=== PATIENT | female | born 1960 | race Caucasian/White ===

== ENCOUNTER → 2019-11-21 | Outpatient (CLI) | payer BC ==
[~2019-11-21] MED LIST: TRAM50TA2 PO; XARE10TA PO
[2019-11-21 16:58] LABS: RHEUMATOID FACTOR QUANT < 10.0 IU/ML (<15.0); URIC ACID 3.3 MG/DL (2.6-6.0)
[2019-11-26 18:11] LABS: ANTINUCLEAR ANTIBODIES DIRECT Negative (Negative); HLA-B27 Negative (.); Lyme Disease IgG/IgM Antibodie <0.91 ISR (0.00-0.90); Lyme Disease IgM Ab Quantitati <0.80 index (0.00-0.79)
== END ==
LOC: M LAB 15:01
PROVIDERS: ATTEND Physician Assistant
DX: M16.0 Bilateral primary osteoarthritis of hip (principal)

== ENCOUNTER → 2019-12-27 | Outpatient (REF) | payer BC ==
[2019-12-27 18:05] LABS: PERCENT SATURATION 14.8 % (13.2-45.0)
== END ==
LOC: M LAB REF 17:20
PROVIDERS: ATTEND Internal Medicine
DX: D64.9 Anemia, unspecified (principal)

== ENCOUNTER 2020-01-23 11:00 | Outpatient (RCR) | payer BC | END 2020-02-01 | LOC: M PT 11:00 | PROVIDERS: ATTEND Physician Assistant Surgical | DX: M16.11 Unilateral primary osteoarthritis, right hip (principal) ==

== ENCOUNTER → 2020-01-23 | Outpatient (CLI) | payer BC ==
[2020-01-23 12:47] LABS: HEMATOCRIT 42.1 % (36.0-47.0); HEMOGLOBIN 13.4 g/dl (12.0-15.5); MEAN CORPUSCULAR HGB CONC 31.8 g/dl (32.0-36.5); MEAN CORPUSCULAR VOLUME 84.9 fl (80.0-96.0); PLATELET COUNT, AUTOMATED 216 10^3/uL (150-450); RED BLOOD COUNT 4.96 10^6/uL (4.00-5.40); WHITE BLOOD COUNT 6.3 10^3/uL (4.0-10.0)
[2020-01-23 12:58] LABS: INR 0.95; PROTHROMBIN TIME 12.9 SECONDS (12.5-14.3)
[2020-01-23 13:10] LABS: ERYTHROCYTE SEDIMENTATION RATE 6 mm/hr (0-30)
[2020-01-23 13:19] LABS: CREATININE FOR GFR 1.04 MG/DL (0.55-1.30)
[2020-01-23 13:20] LABS: ALBUMIN 3.7 GM/DL (3.2-5.2); BILIRUBIN,TOTAL 0.6 MG/DL (0.2-1.0); CALCIUM LEVEL 9.1 MG/DL (8.5-10.1); GLOMERULAR FILTRATION RATE 57.9 (>51); POTASSIUM SERUM 4.2 MEQ/L (3.5-5.1); TOTAL PROTEIN 6.6 GM/DL (6.4-8.2)
--- NOTE | 2020-01-23 13:22 | REP ---
INDICATION: PRE-OP SCREENING, RIGHT HIP ARTHROPLASTY COMPARISON: 07/08/2009 TECHNIQUE: PA and lateral. FINDINGS: The mediastinum and cardiac silhouette are normal. The lung gibbons demonstrate chronic interstitial changes without acute consolidation, effusion, or pneumothorax. The skeletal structures are intact and normal. IMPRESSION: No acute cardiopulmonary process. <Electronically signed by Marquise Page > 01/23/20 5013
--- NOTE | 2020-01-24 08:18 | ECGEPIP ---
[facility] Test Date: 2020-01-23 Pat Name: URIAH WEINBERG Department: Room: - Gender: Female Z[employer] Miner: JOSEF : 1960 Requested By: Brandie Barnes PA-C Order Number: [id number] Reading MD: Bang Chua Measurements Intervals [place] Rate: 98 P: 55 AR: 156 QRS: 2 QRSD: 82 T: 69 QT: 348 QTc: 445 Interpretive Statements Normal sinus rhythm with frequent PACs Low voltages with slow precordial R wave progression and persistent S wave in V5 and V6, along with minuscule inferoapical Q waves; body habitus versus pulmonary disease. Could not rule out prior injury. Nonspecific ST/T wave abnormalities No prior tracing for comparison. Clincal correlation advised Electronically Signed on 01-24-2020 8:18:22 EDT by Bang Chua
== END ==
LOC: M LAB 12:14
PROVIDERS: ATTEND Physician Assistant Surgical
DX: Z01.818 Encounter for other preprocedural examination (principal); M16.11 Unilateral primary osteoarthritis, right hip; R94.31 Abnormal electrocardiogram [ECG] [EKG]

== ENCOUNTER → 2020-01-31 | Outpatient (CLI) | payer BC | LOC: M LABSMTC 10:21 | PROVIDERS: ATTEND Anesthesiology | DX: Z01.812 Encounter for preprocedural laboratory examination (principal); Z20.828 Contact with and (suspected) exposure to other viral communicable diseases | CPT/HCPCS: C9803; U0003 ==

== ENCOUNTER 2020-02-05 05:46 | Inpatient (IN) | payer BC ==
--- NOTE | 2020-01-31 07:02 | HPE ---
DATE OF ANTICIPATED ADMISSION: 02/05/2020 ATTENDING PHYSICIAN: Osmar Bhatt M.D. CHIEF COMPLAINT: Right hip pain and stiffness. HISTORY OF PRESENT ILLNESS: Patient is a pleasant 59-year-old female with progressively worsening right hip pain and stiffness. She failed to improve with conservative measures. She continues to have symptoms with weightbearing activities and activities of daily living. She consented for an elective right total hip arthroplasty with Dr. Bhatt for her continued symptoms. Medical optimization pending with Dr. Valente. CURRENT MEDICATIONS: None. ALLERGIES: None. CHRONIC MEDICAL CONDITIONS: Osteoarthritis. PAST SURGICAL HISTORY: None. SOCIAL HISTORY: Patient does not use tobacco or alcohol. REVIEW OF SYSTEMS: Patient denies fevers, chills, nausea, vomiting or diarrhea. She denies chest pain, shortness of breath, lightheadedness, dizziness or headaches. She denies any recent upper respiratory or urinary tract infection symptoms. Patient does continue to have right hip pain with weightbearing activities and activities of daily living. PHYSICAL EXAMINATION: General: Well-nourished, well-developed female in no apparent distress. She is alert, oriented and cooperative. Mood and affect are appropriate. Vital signs: Height 68.5 inches, weight 198.2 pounds, temperature 97.1, blood pressure 116/74, heart rate 72, respirations 18. Heart: Regular rate and rhythm. Lungs: Clear to auscultation bilaterally. Breathing is regular and non-labored. Abdomen: Soft and nontender. Bowel sounds are present. Musculoskeletal: Inspection of the right hip reveals no gross abnormalities. Skin is intact. Patient has significantly decreased motion of the hip. Strength decreased 4/5 secondary to pain and stiffness. There was quite a bit of hip irritability elicited with range of motion testing; however. Calf is soft and nontender without evidence of DVT. She is neurovascularly intact distally. RADIOLOGY STUDIES: EKG: Normal sinus rhythm with frequent PACs. Low voltages with low precordial R-wave progression and persistent S-wave in V5 and V6 along with minute inferoapical Q-waves. Body habitus versus pulmonary disease. Could not rule out prior injury. Nonspecific ST-T wave abnormalities. Chest x-ray: No acute cardiopulmonary process. Right hip x-ray: Notable for end-stage degenerative changes. LABORATORY DATA: Comprehensive metabolic profile: Fasting glucose 86, BUN 17, creatinine 1.04, GFR 57.9. Sodium 142, potassium 4.2, chloride 107, carbon dioxide 28, anion gap decreased at 7, calcium 9.1. AST 15, ALT 15, alkaline phosphatase elevated at 125, total bilirubin 0.6, total protein 6.6, albumin 3.7, albumin-globulin ratio 1.3. Prothrombin time 12.9, INR 0.95. Complete blood count: ESR 6, WBC 6.3, RBC 4.96, hemoglobin 13.4, hematocrit 42.1, platelets 216. IMPRESSION: Right hip osteoarthritis with x-rays notable for end-stage degenerative changes. PLAN: Patient has consented for an elective right total hip arthroplasty with Dr. Bhatt for her continued symptoms. Medical optimization pending with Dr. Valente. Patient understands that she will be n.p.o. after midnight the night prior to surgery. She will call [facility] the day prior to surgery to get a report time. Patient will use her Hibiclens and Bactroban as directed. [facility] CENTER[facility]ell
[~2020-02-05] VITALS: Ht 172.7 cm; Wt 89.4 kg
[2020-02-05] MEDS ORDERED: LR 1,000 ML IV SCH ×3 (06:00→09:45)
[2020-02-05] MEDS ORDERED: ceFAZolin SOD 2 GM in IV 1 EA IV ONE (06:00)
[2020-02-05] MEDS ORDERED: MIDAZOLAM INJ 2MG/2ML VIAL (J2250 PER 1MG) As Ordered ONE (06:55)
[2020-02-05] MEDS ORDERED: fentaNYL 100 MCG/2 ML INJECTION (J3010) As Ordered ONE (06:56)
[2020-02-05] MEDS ORDERED: propofoL 500 MG/50 ML VIAL As Ordered ONE (06:56)
[2020-02-05] MEDS ORDERED: TRANEXAMIC ACID 100 MG/ML 10ML VIAL As Ordered ONE (07:06)
[2020-02-05] MEDS ORDERED: ceFAZolin 1GM VIAL (J0690 PER 500MG) As Ordered ONE (07:06)
[2020-02-05] MEDS ORDERED: EPINEPHrine INJ 1 MG/ML 1ML AMP As Ordered ONE (07:07)
[2020-02-05] MEDS ORDERED: BUPIVACAINE LIPOSOME/PF 1.3% 20ML VIAL (13.3MG/ML)(EXPAREL)(C9290 PER1MG) As Ordered ONE (07:07)
[2020-02-05] MEDS ORDERED: ePHEDrine SULFATE 25 MG/5 ML(5MG/ML) SYRINGE As Ordered ONE ×2 (07:57→08:46)
[2020-02-05] MEDS ORDERED: PHENYLephrine HCL 500 MCG/5 ML (100MCG/ML) SYRINGE (J2370) As Ordered ONE ×2 (08:00→08:23)
[2020-02-05] MEDS ORDERED: ONDANSETRON 4MG/2ML VIAL As Ordered ONE (08:08)
--- NOTE | 2020-02-05 09:39 | REP ---
INDICATION: POST OP EVAL IN PACU WILL CALL WHEN READY. COMPARISON: None. TECHNIQUE: Two views obtained. FINDINGS: Total hip prosthesis is in good position. At the superior aspect of the greater trochanter appears to be a small focal nondisplaced fracture. This is localized to the superior tip of the greater trochanter. The osseous structures are well-aligned. Metallic skin cici are seen laterally. IMPRESSION: Placement of total hip prosthesis as above. <Electronically signed by Sumanth Gallagher > 02/05/20 0947
[2020-02-05] MEDS ORDERED: MORPHINE 2 MG/ML 1ML VIAL (J2270) IV PRN (09:45)
[2020-02-05] MEDS ORDERED: METOCLOPRAMIDE INJ 10MG/2ML VIAL (J2765 PER 1) IV PRN (09:45)
[2020-02-05] MEDS ORDERED: PERCOCET 5MG/325MG TAB PO PRN ×2 (09:45→15:45)
[2020-02-05] MEDS ORDERED: oxyCODONE 5MG TAB PO PRN (09:45)
[2020-02-05] MEDS ORDERED: ONDANSETRON 4MG/2ML VIAL IV PRN ×2 (09:45)
[2020-02-05] MEDS ORDERED: MORPHINE 4 MG/ML 1ML VIAL/SYRINGE (J2270) IV PRN (09:45)
[2020-02-05] MEDS ORDERED: fentaNYL 100 MCG/2 ML INJECTION (J3010) IV PRN (09:45)
[2020-02-05] MEDS ORDERED: MEPERIDINE INJ 25 MG/ML VIAL (J2175) IV PRN (09:45)
[2020-02-05 11:00] VITALS: BP 112/70
[2020-02-05 11:30] VITALS: BP 114/67
[2020-02-05] MEDS: ACETAMINOPHEN TAB 650MG DOSE (2X325MG) PO PRN ×2 (12:22→16:36)
--- NOTE | 2020-02-05 12:28 | IPN ---
DATE: 02/05/2020 SUBJECTIVE: The patient is seen and examined. She wishes to go ahead with a right hip arthroplasty. She understands the nature of the procedure, the risks of bleeding, infection, damage to nerves and vessels, persistent pain, wear, loosening, dislocation, leg length inequality, blood clots, medical problems and among others. She does appear to be a little longer on the right side than the left and I explained to her that is likely not to get any better following arthroplasty and there is a small chance of lengthening that side a little bit more. We do this to balance the soft tissues and maximize stability of the hip. She is aware of this and understands. She wishes to proceed with a right hip arthroplasty. TOYA
[2020-02-05 12:30] VITALS: BP 114/88
[2020-02-05 13:30] VITALS: BP 111/40
[2020-02-05 14:30] VITALS: BP 113/44
--- NOTE | 2020-02-05 15:15 | CR.PDOC ---
General Date of Consultation: Feb 05, 2020 Referring Provider: Osmar Bhatt Consultation REASON FOR CONSULTATION/CHIEF COMPLAINT: Medical management s/p right hip arthroplasty HISTORY OF PRESENT ILLNESS: Ms. Corea is a 59 year old female with anxiety and osteoarthritis who is here for elective right hip arthroplasty by Dr. Bhatt on 02/05/2020. She loves to walk, and about 10 years ago, she started to have hip pain. Overtime, her symptoms began to worsen. About 2 years ago, she needed to ambulate with a walker. She has failed conservative measures and have decided to proceed with surgery today. She was seen post-op on 5 Anne. Other than her right hip, she feels well. Denies fever, chills, chest pain, dyspnea, abdominal pain, or dysuria. She tell me she hasn't seen a physician for years and does not take medication, but reports new interest in seeing a physician now that she is getting older. She has either her bladder or uterus protruding from her vagina and has been trying to have IMMUNOLOGIST evaluate, but due to her hip arthritis, she could not put her feet into the stirrup. She will see IMMUNOLOGIST outpatient after the surgery. ALLERGIES: Please see below. HOME MEDICATIONS: Please see below. PAST MEDICAL HISTORY: 1. Atrial fibrillation not on anticoagulation 2. Osteoarthritis 3. Anxiety 4. Anemia PAST SURGICAL HISTORY: 1. Right hip arthroplasty on 02/05/2020 FAMILY HISTORY: Father: DM, ESRD, CHF, CAD s/p stent, HTN Mother: DM, CHF, HTN, RACHEL, CAD SOCIAL HISTORY: Tobacco use: Former smoker, quit about 39 years ago, smoked for 4 years, about 2 to 3 ppd ETOH: Denies Illicit drug use: Denies REVIEW OF SYSTEMS: CONSTITUTIONAL: Denies any fever or chills. Denies lightheadedness or dizziness. ENT: Denies rhinorrhea. Denies sore throat. Denies dysphagia. RESPIRATORY: Denies shortness of breath. Denies cough. CARDIOVASCULAR: Denies chest pain. Denies palpitations. GASTROINTESTINAL: Denies abdominal pain. Denies diarrhea. Denies constipation GENITOURINARY: Denies dysuria. CUTANEOUS: Denies rashes. MUSCULOSKELETAL: Denies muscle weakness. NEUROLOGICAL: Has bilateral paresthesia after surgery ENDOCRINE: Denies polyphagia, polyuria HEME/ONC: Reports easy bruisability PHYSICAL EXAMINATION: VITAL SIGNS: Please see below. GENERAL: Comfortable, in no apparent distress. HEENT: Head normocephalic/atraumatic, EOMI, sclera clear. NECK: Supple, no JVD. RESPIRATORY: Lungs clear to auscultation bilaterally, no rales, wheeze or rhonchi. CARDIOVASCULAR: Regular rate and rhythm. ABDOMEN: Soft, nontender, no guarding or rebound tenderness. Normal bowel sounds. MUSCLE SKELETAL: No edema NEUROLOGICAL: CN 312 grossly intact, no focal deficits noted. PSYCHOLOGICAL: Appears anxious and speaks quickly LABORATORY DATA: Please see below. ASSESSMENT/PLAN: 1. Right hip osteoarthritis s/p right hip arthroplasty -Surgery on 02/05/2020 -Management per orthopedic surgery 2. Atrial fibrillation -[id number] score of 1 -Discussed with her about anticoagulation for atrial fibrillation, she declined -Not in atrial fibrillation at this time 3. General wellness -We will check a CBC and BMP -Patient should find a PCP and an IMMUNOLOGIST outpatient 4. DVT ppx -Rivaroxaban Vital Signs/I&O Vital Signs Date Time Temp Pulse Resp B/P (MAP) Pulse Ox O2 Delivery O2 Flow Rate FiO2 02/05/20 12:30 97.9 88 15 114/88 (97) 100 Room Air Allergies Coded Allergies: No Known Allergies (Unverified , 01/29/20) Home Medications No Active Prescriptions or Reported Meds COLIN IDAZ DO Feb 05, 2020 15:15
[2020-02-05 16:12] LABS: HEMATOCRIT 33.7 % (36.0-47.0); HEMOGLOBIN 10.9 g/dl (12.0-15.5); MEAN CORPUSCULAR HEMOGLOBIN 27.5 pg (27.0-33.0); MEAN CORPUSCULAR HGB CONC 32.3 g/dl (32.0-36.5); MEAN CORPUSCULAR VOLUME 85.1 fl (80.0-96.0); PLATELET COUNT, AUTOMATED 162 10^3/uL (150-450); RED BLOOD COUNT 3.96 10^6/uL (4.00-5.40); WHITE BLOOD COUNT 6.9 10^3/uL (4.0-10.0)
[2020-02-05] MEDS: ceFAZolin SOD 2 GM in IV 1 EA IV SCH (16:37)
--- NOTE | 2020-02-05 17:02 | RO ---
DATE OF OPERATION: 02/05/2020 PREOPERATIVE DIAGNOSIS: Right hip osteoarthritis. POSTOPERATIVE DIAGNOSIS: Right hip osteoarthritis. PROCEDURE: Left total hip arthroplasty using a Bamberg size 9 high offset +5, 40 ceramic head and a 60 acetabular component. SURGEON: Osmar Bhatt M.D. BULK SUGAR HANDLER: MECHE Mcclendon ANESTHESIA: Spinal. ESTIMATED BLOOD LOSS: 200. COMPLICATIONS: None. INDICATIONS: A 59-year-old with significant obesity who wished to go ahead with a right hip replacement. DESCRIPTION OF PROCEDURE: The patient was taken to the operating room and placed in the left lateral decubitus position on the [place] positioner. All areas were padded appropriately. Spinal had been introduced. The right hip was prepped and draped in the usual sterile fashion. A timeout was performed. I then created a longitudinal incision along the lateral aspect of the hip that was significantly longer than I typically would do due to her obesity, and I then dissected down through the copious subcutaneous tissue approximately 2.5 to 3.0 inches deep before I got to the fascia. This was incised longitudinally. I controlled hemostasis with cautery. I then divided the anterior 40% of the abductors off and the abductors were actually quite fatty and poor quality tissue. I gradually externally rotated the femur as I exposed the proximal femur and dislocated it. The leg was in the bag. I then used the canal- initiating reamer, the canal-finding reamer, and the lateralizing reamer. Her bone was very soft in the femur. I then sequentially reamed up to a size 9 which is what we had templated, and this had good purchase and good fit. I then removed the head with a saw about three-quarters of a fingerbreadth up from the lesser trochanter. We then directed our attention to the acetabulum. There was some copious labrum and soft tissue around the acetabulum that was removed with the cautery, controlled hemostasis with the cautery and it was evident that there were very large osteophytes, particularly anterior. I then sequentially reamed medializing this a fair amount to make sure I had adequate bone for cup fixation and got down to the floor and sequentially reamed up to a size 59 which had good bleeding bone and good concentric reaming. I then impacted in a size 60 cup in the appropriate amount of anteversion and horizontal tilt, and this was well-seated. I had to irrigate it multiple times prior to this. Again, I irrigated, placed the apex hole eliminator and the actual polyethylene 60 x 40 inner diameter, impacted this in place. It was well- seated. I directed our attention back to the femur and sequentially broached up to a size 9 which had a very good fit and fill. I was fairly careful in terms of impacting this down due to her quite thin bone. I did use the calcar planer to smooth off the proximal femur. I then tried various neck lengths and decided on the high offset due to the medialization of the acetabular component and the soft tissue tension and a +5. This was a 40 head. I put the hip through range of motion and it seemed very stable. There was minimal shuck in full extension, excellent stability in extension and external rotation and flexion in internal rotation. I had removed the trial components. I also removed some very large osteophytes, particularly off the anterior aspect and this was quite challenging. These were extremely large and thick osteophytes removed with an osteotome Jorge rongeur cautery and this took several minutes to get these out. There were some small osteophytes posteriorly that were removed with the rongeur. I had actually done this step prior to trialing and there was no impingement with trialing. I then removed the trial components, irrigated and impacted it in the size 9 high offset stem and seated it down nicely. I dried the taper and placed the +5 40 ceramic head impacted this in place, reduced the hip, put the hip through a range of motion and again was very pleased with the stability and positioning and range of motion. No impingement noted. I then irrigated copiously, placed the TXA in the deep wound, repaired the minimus with #1 Vicryl suture and again irrigated, repaired the abductor with #1 Vicryl suture and extra stitches were used because of the relatively fatty tissue in the muscle which made sewing this back challenging. I then irrigated. I also placed the Exparel in the deep wound and repaired the fascia mingo with #1 Vicryl suture in a running STRATAFIX and then used a second STRATAFIX in the subcutaneous layer to close the space because of the depth of the wound. I then irrigated, closed the subcu with 2-0 Vicryl and the skin with cici. A sterile dressing was applied. She was taken to the recovery room in stable condition. There were no known complications. The certified surgical tech/first assistant was instrumental in holding retractors and assisting in reducing and dislocating the hip and assisting in wound closure. This is coded as an unusually difficult procedure due to the patient's morbid obesity that required significantly longer incision and had a much more difficult dissection due to the fact that her soft tissues were atrophic and fatty. She had very large osteophytes around the acetabulum which added difficulty and time to the procedure, and her bone was quite thin on both the acetabular and femoral sides so I had to be quite careful about broaching and reaming. Finally, the wound closure was prolonged and more difficult due to the tissue quality and the depth of the wound. TOYA
[2020-02-05 20:49] LABS: BLOOD UREA NITROGEN 11 MG/DL (7-18); CALCIUM LEVEL 8.4 MG/DL (8.5-10.1); CARBON DIOXIDE LEVEL 25 MEQ/L (21-32); CHLORIDE LEVEL 108 MEQ/L (98-107); CREATININE FOR GFR 0.98 MG/DL (0.55-1.30); GLOMERULAR FILTRATION RATE > 60.0 (>51); GLUCOSE, FASTING 117 MG/DL (70-100); POTASSIUM SERUM 3.4 MEQ/L (3.5-5.1); SODIUM LEVEL 140 MEQ/L (136-145)
[2020-02-05] MEDS: traMADol 50 MG TAB PO PRN (21:20)
[2020-02-05] MEDS: ACETAMINOPHEN 500 MG TAB PO SCH (21:20)
[2020-02-05 22:00] VITALS: BP 110/49
[2020-02-06] MEDS: ceFAZolin SOD 2 GM in IV 1 EA IV SCH (00:46)
[2020-02-06 02:00] VITALS: BP 118/54
[2020-02-06] MEDS: ACETAMINOPHEN 500 MG TAB PO SCH (04:34)
[2020-02-06] MEDS: traMADol 50 MG TAB PO PRN ×2 (04:35→10:09)
[2020-02-06 06:00] VITALS: BP 114/56
[2020-02-06] MEDS ORDERED: TRAM50TA2 PO (06:51)
[2020-02-06] MEDS ORDERED: XARE10TA PO (06:51)
[2020-02-06 07:32] LABS: HEMATOCRIT 35.4 % (36.0-47.0); HEMOGLOBIN 11.5 g/dl (12.0-15.5); MEAN CORPUSCULAR HEMOGLOBIN 27.6 pg (27.0-33.0); MEAN CORPUSCULAR HGB CONC 32.5 g/dl (32.0-36.5); MEAN CORPUSCULAR VOLUME 85.1 fl (80.0-96.0); PLATELET COUNT, AUTOMATED 165 10^3/uL (150-450); RED BLOOD COUNT 4.16 10^6/uL (4.00-5.40); WHITE BLOOD COUNT 7.9 10^3/uL (4.0-10.0)
[2020-02-06 07:56] LABS: BLOOD UREA NITROGEN 10 MG/DL (7-18); CALCIUM LEVEL 8.3 MG/DL (8.5-10.1); CARBON DIOXIDE LEVEL 24 MEQ/L (21-32); CHLORIDE LEVEL 107 MEQ/L (98-107); CREATININE FOR GFR 0.93 MG/DL (0.55-1.30); GLOMERULAR FILTRATION RATE > 60.0 (>51); GLUCOSE, FASTING 123 MG/DL (70-100); POTASSIUM SERUM 3.6 MEQ/L (3.5-5.1); SODIUM LEVEL 138 MEQ/L (136-145)
[2020-02-06] MEDS ORDERED: MOM 30ML SUSPENSION UDC PO SCH (09:00)
[2020-02-06] MEDS ORDERED: MIRALAX *UNIT DOSE* 17GM PACKET PO SCH (09:00)
[2020-02-06] MEDS ORDERED: RIVAROXABAN 10 MG TAB (XARELTO) PO SCH (18:00)
== END 2020-02-06 11:30 | disposition home or self-care (01) | DRG 301 ==
LOC: M OR 05:46 → M MS5PR 10:45
PROVIDERS: ADMIT Orthopaedic Surgery; ATTEND Orthopaedic Surgery
PROC: 0SR904Z Replacement of Right Hip Joint with Ceramic on Polyethylene Synthetic Substitute, Open Approach (ICD-10-PCS; principal; 2020-02-05 07:30)
DX: M16.11 Unilateral primary osteoarthritis, right hip (principal); E66.9 Obesity, unspecified; I48.91 Unspecified atrial fibrillation; R26.89 Other abnormalities of gait and mobility; F41.9 Anxiety disorder, unspecified; D64.9 Anemia, unspecified; Z87.891 Personal history of nicotine dependence; Z68.30 Body mass index [BMI] 30.0-30.9, adult

== ENCOUNTER → 2020-02-17 | Outpatient (CLI) | payer BC ==
--- NOTE | 2020-02-17 12:47 | REP ---
INDICATION: R/O DVT/ PAIN IN RLL/ JOINT REPLACEMENT. COMPARISON: None. TECHNIQUE: Multiple ultrasonographic images of the deep venous structures of the right thigh were obtained from the common femoral vein to the popliteal vein along with Doppler interrogation and color flow Doppler images. FINDINGS: There is no abnormal echogenic material seen within any of the visualized deep venous structures that would suggest acute thrombosis. Coaptation is unremarkable throughout. Doppler interrogation shows an expected response to respiratory variability and augmentation. The color flow images show what appears to be a normal vascular pattern throughout. IMPRESSION: There is no ultrasonographic evidence of deep venous thrombosis involving any of the visualized deep venous structures of the right thigh, as described above. <Electronically signed by Dipak Viramontes > 02/17/20 [id number]
== END ==
LOC: M RAD 11:56
PROVIDERS: ATTEND Orthopaedic Surgery
DX: M79.661 Pain in right lower leg (principal)